=== PATIENT | female | born 1990 | race African-American/Black ===

== ENCOUNTER 2018-03-30 22:26 | Emergency (ER) | payer OTHER | END 2018-03-30 22:32 | disposition left against medical advice (07) | LOC: ERS 22:26 | DX: Z53.21 Procedure and treatment not carried out due to patient leaving prior to being seen by health care provider (principal) ==

== ENCOUNTER 2018-09-23 08:55 | Outpatient (CLI) | payer MEDICAID, OTHER ==
--- NOTE | 2018-09-23 11:16 | RAD ---
TWO VIEW SKULL SERIES: INDICATION: Prescreening MRI safety exam. FINDINGS: There is no radiopaque foreign body overlying the orbits bilaterally. Imaged osseous structures are intact. IMPRESSION: No radiopaque foreign bodies overlying the orbits. POS: ARNALDO
--- NOTE | 2018-09-23 12:53 | MRI ---
MRI LEFT WRIST WITHOUT CONTRAST: INDICATIONS: History of left wrist ganglion cyst removal in 2017 with persistent left wrist pain. COMPARISON: None. FINDINGS: Carpal tunnel contents are normal appearing. The FCR and FCU tendons are intact. The extensor tendo ns are intact. The scapholunate and the lunatotriquetral ligaments are intact. The visualized extr insic ligaments appear intact. The TFC appears intact. Bone marrow signal intensity is normal appea ring. No joint effusion is evident. IMPRESSION: Normal MRI examination of the left wrist. POS: OFF
== END 2018-09-23 08:56 | disposition home or self-care (01) ==
LOC: BICMRI 08:55
PROVIDERS: ATTEND Orthopaedic Surgery
DX: M67.432 Ganglion, left wrist (principal)
CPT/HCPCS: 70250

== ENCOUNTER 2019-06-03 13:40 | Outpatient (CLI) | payer OTHER ==
--- NOTE | 2019-06-03 14:40 | RAD ---
CERVICAL SPINE FOUR VIEWS: HISTORY: Neck pain. COMPARISON: None. FINDINGS: The C1 to the cervicothoracic junction is seen on the lateral view. Vertebral body height and interv ertebral disk spaces are within normal limits. No fracture or subluxation is seen involving the cerv ical spine. The intraspinous distances are within normal limits. The prevertebral soft tissues are also within normal limits. IMPRESSION: No fracture or subluxation involving the cervical spine. POS: GERI
--- NOTE | 2019-06-03 14:42 | RAD ---
TWO VIEWS THORACIC SPINE: 06/03/19 HISTORY: Back pain. FINDINGS: Comparison is made with swimmers view of the cervical spine also obtained on this date. Vertebral body heights are within normal limits. No fracture or subluxation is seen involving the tho racic spine. IMPRESSION: No acute findings. POS: GERI
--- NOTE | 2019-06-03 14:52 | RAD ---
THREE VIEWS LUMBAR SPINE: 06/03/19 HISTORY: Back pain. COMPARISON: 08/03/13. FINDINGS: There are five nonribbearing lumbar type vertebral bodies. The vertebral body heights and interverteb ral disc spaces are within normal limits. No fracture or subluxation seen involving the lumbar spine. There has been no interval change when compared to the prior exam. IMPRESSION: No acute findings involving the lumbar spine. POS: GERI
== END 2019-06-03 13:41 | disposition home or self-care (01) ==
LOC: RAD-FRANK 13:40
PROVIDERS: ATTEND Nurse Practitioner Family
DX: S29.012A Strain of muscle and tendon of back wall of thorax, initial encounter (principal); S33.5XXD Sprain of ligaments of lumbar spine, subsequent encounter; M54.2 Cervicalgia
CPT/HCPCS: 72040; 72070; 72100

== ENCOUNTER 2021-01-06 08:22 | Emergency (ER) | payer OTHER | END 2021-01-06 09:30 | disposition left against medical advice (07) | LOC: ERS 08:22 | DX: Z53.21 Procedure and treatment not carried out due to patient leaving prior to being seen by health care provider (principal) ==

== ENCOUNTER 2021-11-06 17:17 | Emergency (ER) | payer OTHER | END 2021-11-06 18:16 | disposition left against medical advice (07) | LOC: ERS 17:17 | DX: Z53.21 Procedure and treatment not carried out due to patient leaving prior to being seen by health care provider (principal) ==